=== PATIENT | female | born 1965 | race Caucasian/White ===

== ENCOUNTER 2016-10-14 18:19 | Emergency (ER) | payer OTHER ==
--- NOTE | ~2016-10-14 | CR63 ---
[facility] A Service of [facility] & [facility] RADIOLOGY TEXT RESULTS PATIENT: DUNCAN WERNER LOCATION: SED : 69 UNIT #: [id number] AGE: [address]: Kendall Rankin MD SEX: F ORDER DR: [id number] [address] [address] [id number] E MR#: [id number] Acc #: [id number] NAME: DUNCAN WERNER : 1965 SEX: F STUDY DATE/TIME: 10/14/2016 21:13 UNIT: SED ROOM: STUDY DESCRIPTION: CR Chest 2 View Attending Physician: Kendall Rankin M.D. Ordering Physician: Kendall Rankin M.D. Primary Care Physician: Deepa Liang M.D. MEDICAL IMAGING REPORT This report is preliminary unless electronic signature is present. EXAM Two-view chest, 10/14/16. INDICATIONS 50-year-old female with a cough, congestion, shortness of air; symptoms 2 weeks. Acute bronchitis. TECHNIQUE Two views of the chest compared with 10/23/07 FINDINGS Cardiac silhouette unremarkable. The vascularity is normal and the lungs are clear. 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 IMPRESSION 1. Calcified granulomatous changes, otherwise negative chest. 1. Dictated by... Gilberto Lilly M.D. THIS IS AN ELECTRONICALLY VERIFIED REPORT Gilberto Lilly M.D. at 10/15/2016 2:33 PM BENNY/kathy TD: 10/15/2016 08:58 JOB #: [id number] MEDICAL IMAGING REPORT Page 1 of 1
[2016-10-14] MEDS ORDERED: ALBUTEROL17 GM INH (18:34)
[2016-10-14] MEDS ORDERED: DULOXETINE HCL60 MG PO (18:34)
[2016-10-14] MEDS ORDERED: OMEPRAZOLE40 M1 PO (18:34)
== END 2016-10-14 22:11 | disposition home or self-care (01) ==
LOC: SED 18:19
DX: J20.9 Acute bronchitis, unspecified (principal); J45.909 Unspecified asthma, uncomplicated; K21.9 Gastro-esophageal reflux disease without esophagitis; F41.9 Anxiety disorder, unspecified; F17.210 Nicotine dependence, cigarettes, uncomplicated; Z90.49 Acquired absence of other specified parts of digestive tract; Z90.710 Acquired absence of both cervix and uterus; Z98.890 Other specified postprocedural states
CPT/HCPCS: 71020; 99283